=== PATIENT | male | born 1985 | race Caucasian/White ===

== ENCOUNTER 2018-09-19 17:22 | Emergency (ER) | payer BC ==
--- NOTE | 2018-09-19 17:46 | EDM.PDOC ---
ED HPI GENERAL MEDICAL PROBLEM - General Chief Complaint: Headache Stated Complaint: INFECTION Time Seen by Provider: 09/19/18 17:25 Source of Information: Reports: Patient History Limitations: Reports: No Limitations - History of Present Illness INITIAL COMMENTS - FREE TEXT/NARRATIVE: History of present illness: []Patient has had 3-4 days of right-sided anterior neck pain. He states he has a bad tooth correcting into his jaw bone. He denies having any difficulty swallowing, difficulty breathing, vocal changes, fevers or chills, nausea, vomiting or diarrhea. Pain is worse with palpation and movement of his head. Review of systems: As per history of present illness and below otherwise all systems reviewed and negative. Past medical history: As per history of present illness and as reviewed below otherwise noncontributory. Surgical history: As per history of present illness and as reviewed below otherwise noncontributory. Social history: No reported history of drug or alcohol abuse. Family history: As per history of present illness and as reviewed below otherwise noncontributory. Physical exam: General: Well developed, well nourished in NAD HEENT: Atraumatic, normocephalic, pupils reactive, negative for conjunctival pallor or scleral icterus, mucous membranes moist, throat clear, neck supple, tender over the right sternocleidomastoid with mild swelling. There is no subcutaneous crepitance., trachea midline. No Stridor, no sinus tenderness to palpation, TMs are normal Lungs: Clear to auscultation, breath sounds equal bilaterally, chest nontender. Heart: S1S2, regular, negative for clicks, rubs, or JVD. Abdomen: NABS, Soft, nondistended, nontender. Negative for masses or hepatosplenomegaly. Negative for costovertebral tenderness. Pelvis: Stable nontender. Genitourinary: Deferred. Rectal: Deferred. Extremities: Atraumatic, negative for cords or calf pain. Neurovascular unremarkable. Neuro: Awake, alert, oriented. Cranial nerves II through XII unremarkable. Cerebellum unremarkable. Motor and sensory unremarkable throughout. Exam nonfocal. Exam present is her negative Skin:warm and dry Diagnostics: CT soft tissue neck-no definitive abscess positive right-sided neck swelling Therapeutics: Toradol IM ED Course: Unremarkable Impression: Right sided soft tissue neck infection Prescriptions: Clindamycin, tramadol Plan: Follow-up with ENT or primary care within 1 week return to ER immediately if symptoms worsen or change. Definitive disposition and diagnosis as appropriate pending reevaluation and review of above. Generalized Pain Score (Numeric/FACES): 2 - Related Data Allergies Allergy/AdvReac Type Severity Reaction Status Date / Time No Known Allergies Allergy Verified 09/19/18 17:35 Home Meds: Home Meds Clindamycin HCl 300 mg PO TID #30 capsule 09/19/18 [Rx] Losartan Potassium 25 mg PO DAILY 09/19/18 [History] Omeprazole 20 mg PO DAILY 09/19/18 [History] traMADol HCl [Tramadol HCl] 50 mg PO Q6H PRN #20 tablet 09/19/18 [Rx] Past Medical History - Past Health History Medical/Surgical History: Denies Medical/Surgical History Cardiovascular History: Reports: Hypertension Gastrointestinal History: Reports: GERD Social & Family History - Family History Family Medical History: Noncontributory - Tobacco Use Smoking Status *Q: Never Smoker - Recreational Drug Use Recreational Drug Use: No ED ROS GENERAL - Review of Systems Review Of Systems: ROS reveals no pertinent complaints other than HPI. ED EXAM, UPPER BACK/NECK PAIN - Physical Exam Exam: See Below (See history of present illness) Course - Vital Signs Last Recorded V/S: Last Vital Signs Temp 98.2 F 09/19/18 17:33 Pulse 101 H 09/19/18 17:33 Resp 18 09/19/18 17:33 BP 149/77 H 09/19/18 17:33 Pulse Ox 93 L 09/19/18 17:33 - Orders/Labs/Meds Meds: Medications Discontinued Medications Generic Name Dose Route Start Last Admin Trade Name Freq PRN Reason Stop Dose Admin Ketorolac Tromethamine 60 mg 09/19/18 17:47 09/19/18 18:07 Toradol IM 09/19/18 17:48 60 mg ONETIME ONE Administration Departure - Departure Time of Disposition: 18:56 Disposition: Home, Self-Care 01 Condition: Good Clinical Impression: No x-rays or - Discharge Information *PRESCRIPTION DRUG MONITORING PROGRAM REVIEWED*: No *COPY OF PRESCRIPTION DRUG MONITORING REPORT IN PATIENT TORI: No Prescriptions: Clindamycin HCl 300 mg PO TID #30 capsule traMADol HCl [Tramadol HCl] 50 mg PO Q6H PRN #20 tablet PRN Reason: Pain Referrals: PCP,None [Primary Care Provider] - Forms: ED Department Discharge Additional Instructions: The following information is given to patients seen in the emergency department who are being discharged to home. This information is to outline your options for follow-up care. We provide all patients seen in our emergency department with a follow-up referral. The need for follow-up, as well as the timing and circumstances, are variable depending upon the specifics of your emergency department visit. If you don't have a primary care physician on staff, we will provide you with a referral. We always advise you to contact your personal physician following an emergency department visit to inform them of the circumstance of the visit and for follow-up with them and/or the need for any referrals to a consulting specialist. The emergency department will also refer you to a specialist when appropriate. This referral assures that you have the opportunity for follow-up care with a specialist. All of these measure are taken in an effort to provide you with optimal care, which includes your follow-up. Under all circumstances we always encourage you to contact your private physician who remains a resource for coordinating your care. When calling for follow-up care, please make the office aware that this follow-up is from your recent emergency room visit. If for any reason you are refused follow-up, please contact the [facility] Emergency Department at and asked to speak to the emergency department charge nurse. [facility] Specialty Care - ENT [address] [place] [id number] [facility] Primary [facility] [address] [place] [id number]
[2018-09-19] MEDS ORDERED: Ketorolac 60 MG/2 ML SDV IM ONE (17:47)
--- NOTE | 2018-09-19 18:31 | CT ---
INDICATION: Anterior right neck pain and swelling TECHNIQUE: CT soft tissue of the neck was acquired without IV contrast. COMPARISON: None available FINDINGS: The study is limited given the lack of intravenous contrast. There is prominence of the posterior nasopharyngeal soft tissues for the patient`s age, mildly more prominent on the right. The oropharynx, hypopharynx and larynx are patent. No discrete tonsillar or peritonsillar collection is seen, given the limitations of a noncontrast examination. The parotid, submandibular and sublingual glands are within normal limits. No discrete thyroid lesion is seen. No abnormally enlarged cervical lymph nodes are seen. Scattered shotty subcentimeter lymph nodes are not abnormally enlarged by CT size criteria. There is polypoid mucosal thickening in the maxillary sinuses. No suspicious or acute osseous abnormalities are seen. There is a borderline right paratracheal lymph node in the superior mediastinum, nonspecific. IMPRESSION: No discrete drainable fluid collection seen, given the limitations of a noncontrast examination. Prominent posterior nasopharyngeal soft tissues for the patient`s age, mildly more pronounced on the right. Correlate with ENT evaluation. Maxillary sinus disease. Dictated by Dakotah Zuñiga MD @ 09/19/2018 6:30:45 PM Please note that all CT scans at this facility use dose modulation, iterative reconstruction, and/or weight-based dosing when appropriate to reduce radiation dose to as low as reasonably achievable. Dictated by: Dakotah Zuñiga MD @ 09/19/2018 18:30:57 (Electronically Signed)
== END 2018-09-19 19:19 | disposition home or self-care (01) ==
LOC: MW.ED 17:22
DX: L08.9 Local infection of the skin and subcutaneous tissue, unspecified (principal); I10 Essential (primary) hypertension; K21.9 Gastro-esophageal reflux disease without esophagitis
CPT/HCPCS: 70490; 96372; 99284; J1885; 99283